=== PATIENT | male | born 1980 | race Caucasian/White ===

== ENCOUNTER → 2017-08-25 | Day surgery (SDC) | payer BC ==
[2017-08-09 13:16] VITALS: BMI 47.5
[2017-08-25 08:19] VITALS: TEMP 97.4
--- NOTE | 2017-08-25 09:31 | RAD ---
CERVICAL AND THORACIC AND LUMBAR MYELOGRAM FLUOROSCOPIC GUIDED: Date: 08/25/17 HISTORY: Spondylosis with myelopathy. Thoracic spine pain. Lumbar spine pain. Cervical spondylosis. COMPARISON: None. TECHNIQUE/FINDINGS: Patient brought to the fluoroscopy suite. All questions answered. Informed consent obtained. Timeout performed. The patient's back was prepped and draped in the normal sterile fashion. 3 mL of buffered lidocaine was instilled into the superficial and deep soft tissues. Using a 5 22 gauge needle, the thecal sac was accessed at the L2-3 interspace. Clear CSF was visualized. 12 mL of Omnipaque-M300 wa s instilled into the thecal sac. The patient was manipulated to place the contrast throughout the spi nal column. The patient tolerated the procedure well and without complication. IMPRESSION: Technically successful fluoroscopic guided cervical, thoracic, and lumbar myelogram. POS: [facility]
--- NOTE | 2017-08-25 11:17 | CT ---
CT CERVICAL SPINE WITH CONTRAST: HISTORY: Myelogram. Pain. Spondylosis. COMPARISON: CT cervical spine 08/04/13. FINDINGS: The paraspinal soft tissues are unremarkable. The lung apices are clear. The mastoids are well aerated. ACDF hardware at C4-C6 without hardware complication. There are small erosions of the lateral masses of C1 bilaterally, worse on the left. There is narrow ing of the left atlanto-occipital joint. Temporomandibular joint alignment is normal. There is mild narrowing between the anterior arch of C1 and the odontoid process. Levels are as follow: C2-3: There is a low-grade circumferential disk bulge. Mild uncinate process hypertrophy. Mild lef t-sided facet arthrosis. No significant neural foraminal narrowing. C3-4: Low-grade circumferential disk bulge and mild facet arthropathy. Mild uncinate process hypert rophy. The spinal canal is not significantly narrowed. The neural foramen are patent. C4-5: Discectomy changes and fusion. Mild ossification of the posterior longitudinal ligament narro wing the ventral CSF space. No significant neural foraminal narrowing. C5-6: Discectomy changes and fusion. Mild ossification of the posterior longitudinal ligament narrow ing the ventral CSF space. Minimal facet arthropathy. No neural foraminal narrowing. C6-7: Mild degenerative disk space narrowing. Mild uncinate process hypertrophy. There is hypyertr ophic scar vs disc sequestration narrowing the spinal canal. No neural foraminal narrowing. IMPRESSION: 1. Mild to moderate spondylosis with multiple levels of mild ventral cerebrospinal fluid space narro wing without significant spinal canal narrowing. Minimal neural foraminal narrowing. 2. Advanced for age degenerative changes of the atlantodental interval as well as of the left atlant o-occipital articulation. POS: [facility]
--- NOTE | 2017-08-25 11:22 | CT ---
CT THORACIC SPINE WITH CONTRAST: Date: 08/25/17 HISTORY: Spondylosis. Pain. COMPARISON: None. FINDINGS: There is unilateral left-sided posterior spinal fusion at T6/T7 with transpedicular screws and interc onnecting thomas. No evidence of hardware complication at this level. No fracture. No malalignment. At the T6-T7 level, there is near complete osseous fusion of the foreign legal consultant ior elements. There is 1.0 x 4.0 mm calcification in the intrapolar left renal collecting system. Visualized portio ns of the lungs are clear. Adrenal glands unremarkable. IMPRESSION: 1. Intact posterior spinal fusion and unilateral hardware. No hardware complication. 2. No significant neural foraminal or spinal canal narrowing of the thoracic spine. 3. 1.0 x 4.0 mm calcification superior left renal collecting system. POS: [facility]
--- NOTE | 2017-08-25 11:38 | CT ---
CT LUMBAR SPINE WITH CONTRAST: HISTORY: Lumbar spinal spondylosis. Pain. COMPARISON: None. TECHNIQUE: CT lumbar spine performed after the intrathecal administration of contrast. FINDINGS: There is a 1 x 4 mm calculus in the superior left renal collecting system. No retroperitoneal adenop athy. The aortic contour is nonaneurysmal. There is bilateral SI joint fusion hardware. There is no acute fracture or malalignment. Levels are as follows: T12-L1: Mild degenerative disk space narrowing. No neural foraminal or spinal canal narrowing. L1-2: Mild posterior degenerative disk space narrowing. Moderate facet arthropathy. No neural fora radhika or spinal canal narrowing. L2-3: Low-grade posterior disk bulge. No neural foraminal or spinal canal narrowing. L3-4: Moderate facet arthropathy. Mild ligamentum flavum hypertrophy. No neural foraminal or spina l canal narrowing. L4-5: Mild degenerative disk space height loss. Low-grade circumferential disk bulge. Moderate dis k arthropathy. No neural foraminal or spinal canal narrowing. L5-S1: Mild posterior degenerative disk space height loss. No neural foraminal or spinal canal narr owing. IMPRESSION: No significant neural foraminal or spinal canal narrowing of the lumbar spine. POS: [facility]
== END ==
LOC: RAD 07:28
PROVIDERS: ATTEND Neurological Surgery
PROC: B01B1ZZ Fluoroscopy of Spinal Cord using Low Osmolar Contrast (ICD-10-PCS; principal; 2017-08-25)
DX: M47.892 Other spondylosis, cervical region (principal); M47.14 Other spondylosis with myelopathy, thoracic region; M47.16 Other spondylosis with myelopathy, lumbar region; Z98.1 Arthrodesis status; Z79.899 Other long term (current) drug therapy
CPT/HCPCS: 62305; 72126; 72129; 72132

== ENCOUNTER 2017-11-21 12:28 | Emergency (ER) | payer BC, SELFPAY ==
[2017-11-21] MEDS ORDERED: Ketorolac Tromethamine 30 MG/ML VIAL ONE (14:23)
== END 2017-11-21 14:50 | disposition home or self-care (01) ==
LOC: ERS 12:28
DX: S76.012A Strain of muscle, fascia and tendon of left hip, initial encounter (principal); L03.114 Cellulitis of left upper limb; R60.0 Localized edema; X50.9XXA Other and unspecified overexertion or strenuous movements or postures, initial encounter
CPT/HCPCS: 96372; J1885

== ENCOUNTER 2018-01-08 20:48 | Emergency (ER) | payer MEDICAID, SELFPAY | END 2018-01-08 22:05 | disposition home or self-care (01) | LOC: ERS 20:48 | DX: L03.317 Cellulitis of buttock (principal) | CPT/HCPCS: 99283 ==

== ENCOUNTER 2018-01-16 22:24 | Emergency (ER) | payer MEDICAID ==
[2018-01-16] MEDS ORDERED: Bacitracin Zinc 1 Packet ONE (23:18)
== END 2018-01-16 23:21 | disposition home or self-care (01) ==
LOC: ERS 22:24
DX: S30.91XA Unspecified superficial injury of lower back and pelvis, initial encounter (principal); F90.9 Attention-deficit hyperactivity disorder, unspecified type; Z79.899 Other long term (current) drug therapy; X58.XXXA Exposure to other specified factors, initial encounter
CPT/HCPCS: 99282